=== PATIENT | female | born 1990 | race African-American/Black ===

== ENCOUNTER 2016-12-14 14:47 | Outpatient (CLI) | payer MEDICAID ==
[2016-12-14 15:55] LABS: APPEARANCE,URINE SLIGHTLY-CLOUDY; BILIRUBIN,URINE NEGATIVE (NEGATIVE); GLUCOSE, URINE NEGATIVE (NEGATIVE); KETONES,URINE NEGATIVE (NEGATIVE); LEUKOCYTE ESTERASE,URINE TRACE (NEGATIVE); NITRITE,URINE NEGATIVE (NEGATIVE); PROTEIN,URINE NEGATIVE (NEGATIVE); UROBILINOGEN,URINE NEGATIVE mg/dL (<2.0)
[2016-12-14 16:10] LABS: URINE BARBITURATES SCREEN NEGATIVE; URINE METHADONE SCREEN NEGATIVE; URINE OPIATES LOW NEGATIVE; URINE PHENCYCLIDINE SCREEN NEGATIVE
--- NOTE | 2016-12-14 16:11 | Non Stress Test Report ---
Non Stress Test Datetime Report Generated by CPN: 12/14/2016 16:11 DEMOGRAPHIC EGA NST: 37.6 INDICATION Indication for Study: Ordered by Provider MONITORING Monitor Explained: Monitor Explained; Test Explained; Patient Verbalized Understanding Time on Monitor: 12/14/2016 15:05 Time off Monitor: 12/14/2016 15:58 NST Duration: 53 NST INTERVENTIONS NST Interventions: None Physician Notified NST: J. Hansen, CNM BABY A: [id number] BABY A Movement : Present Contraction Frequency : x1 FHR Baseline : 135 Accelerations : 15X15 Decelerations : None Variability : Moderate 6-25bpm NST Review: Meets Criteria for Reactive NST NST Review and Verified By : Ney Ambrosio RN NST Results: Reactive NST REPORT Report Trigger: Send Report
== END 2016-12-14 16:05 | disposition home or self-care (01) ==
LOC: LC 14:47
PROVIDERS: ATTEND Obstetrics & Gynecology
PROC: 4A1HXCZ Monitoring of Products of Conception, Cardiac Rate, External Approach (ICD-10-PCS; principal; 2016-12-14)
DX: O47.1 False labor at or after 37 completed weeks of gestation (principal); Z3A.38 38 weeks gestation of pregnancy
CPT/HCPCS: 59025; 80307; 81005

== ENCOUNTER 2017-02-02 18:40 | Emergency (ER) | payer BC, MEDICAID ==
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
[2017-02-03 09:22] LABS: ABSOLUTE EOSINOPHILS # (AUTO) 0.2 10^3/uL (0.0-0.6); ABSOLUTE LYMPHOCYTES (AUTO) 3.2 10^3/uL (0.5-4.7); ABSOLUTE MONOCYTES (AUTO) 0.4 10^3/uL (0.1-1.4); ABSOLUTE NEUT (AUTO) 3.2 10^3/uL (1.7-8.2); BASOPHILS % (AUTO) 0.5 % (0-2); EOSINOPHILS % (AUTO) 2.5 % (0-6); HEMATOCRIT 39.5 % (36.0-47.0); HEMOGLOBIN 12.6 g/dL (12.0-15.5); HGB HCT DIFFERENCE -1.7; LYMPHOCYTES % (AUTO) 45.6 % (13-45); MEAN CORPUSCULAR HEMOGLOBIN 29.1 pg (27.0-33.4); MEAN CORPUSCULAR HGB CONC 31.8 g/dL (32.0-36.0); MEAN CORPUSCULAR VOLUME 92 fl (80-97); MONOCYTES % (AUTO) 5.8 % (3-13); RED BLOOD COUNT 4.32 10^6/uL (3.72-5.28); SEGMENTED NEUTROPHILS % (AUTO) 45.6 % (42-78)
== END 2017-02-03 00:10 | disposition home or self-care (01) ==
LOC: ER 18:40
DX: N93.8 Other specified abnormal uterine and vaginal bleeding (principal)
CPT/HCPCS: 36415; 85025; 99284

== ENCOUNTER 2017-11-09 04:47 | Emergency (ER) | payer BC, MEDICAID ==
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
--- NOTE | 2017-11-09 07:38 | RADIOLOGY REPORT (SQ) ---
EXAM DESCRIPTION: CT HEAD WITHOUT CLINICAL HISTORY: EtOH intoxication complaint of headache confusion COMPARISON: None available TECHNIQUE: Axial CT of the head obtained from the skull apex to the skull base without contrast. FINDINGS: No acute intracranial hemorrhage identified. No mass, mass effect, shift of the midline, abnormal extra-axial fluid collection or CT evidence of acute ischemic change identified. The ventricular system is unremarkable. No acute abnormalities of the supratentorial white matter, basal ganglia, cerebellum, or brainstem. The visualized paranasal sinuses and the mastoids are clear. No skull fracture identified. Visualized orbits and globes are unremarkable. Left nose piercing identified. DLP:1162.97 mGy-cm IMPRESSION: 1. No acute intracranial abnormality. This exam was performed according to our departmental dose-optimization program, which includes automated exposure control, adjustment of the mA and/or kV according to patient size and/or use of iterative reconstruction technique.
--- NOTE | 2017-11-09 07:56 | RADIOLOGY REPORT (SQ) ---
EXAM DESCRIPTION: KNEE RIGHT 1 VIEWS CLINICAL HISTORY: PAIN IN RT KNEE, UNSURE HOW INJURED, NO BRUISING COMPARISON: None. FINDINGS: Single view of the knee. No acute fracture identified on this single frontal view. Normal osseous mineralization. IMPRESSION: No acute fracture noted on single frontal view of the knee.
[2017-11-09] MEDS ORDERED: ACETAMINOPHEN 325 MG TABLET PO ONE (08:00)
== END 2017-11-09 14:23 | disposition home or self-care (01) ==
LOC: ER 04:47
DX: F10.120 Alcohol abuse with intoxication, uncomplicated (principal); Y90.7 Blood alcohol level of 200-239 mg/100 ml; S00.531A Contusion of lip, initial encounter; S80.811A Abrasion, right lower leg, initial encounter; X58.XXXA Exposure to other specified factors, initial encounter; R51 Headache; M25.561 Pain in right knee; R41.3 Other amnesia; F17.210 Nicotine dependence, cigarettes, uncomplicated; Z71.6 Tobacco abuse counseling
CPT/HCPCS: 36415; 70450; 80307; 84703; 99285; 99406

== ENCOUNTER 2017-12-17 18:48 | Emergency (ER) | payer BC, MEDICAID ==
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
--- NOTE | 2017-12-17 19:37 | RADIOLOGY REPORT (SQ) ---
EXAM DESCRIPTION: FINGER RIGHT COMPLETED DATE/TIME: 12/17/2017 7:29 pm REASON FOR STUDY: injury 2.5 weeks ago COMPARISON: None. NUMBER OF VIEWS: Three views. TECHNIQUE: AP, lateral, and oblique images acquired of the right fifth finger. LIMITATIONS: None. FINDINGS: MINERALIZATION: Normal. BONES: No acute fracture or dislocation. No worrisome bone lesions. SOFT TISSUES: No soft tissue swelling. No foreign body. OTHER: No other significant finding. IMPRESSION: NO RADIOGRAPHIC EVIDENCE OF ACUTE INJURY. COMMENT: SITE OF TRAUMA/COMPLAINT MARKED/STAMP COMPLETED: Yes TECHNICAL DOCUMENTATION: JOB ID: [id number] [employer]- All Rights Reserved Reading location - IP/workstation name: [email or web address]
[2017-12-17] MEDS ORDERED: PENICILLIN V POTASSIUM 500 MG TABLET PO ONE (20:07)
[2017-12-17] MEDS ORDERED: IBUPROFEN 800 MG TABLET PO ONE (20:07)
[2017-12-17] MEDS ORDERED: ACETAMINOPHEN 325 MG TABLET PO ONE (20:18)
[2017-12-17 20:33] VITALS: BP 134/79
== END 2017-12-17 20:33 | disposition home or self-care (01) ==
LOC: ER 18:48
DX: S69.91XA Unspecified injury of right wrist, hand and finger(s), initial encounter (principal); Y04.0XXA Assault by unarmed brawl or fight, initial encounter; J02.0 Streptococcal pharyngitis
CPT/HCPCS: 87880; 99283

== ENCOUNTER 2019-08-15 16:15 | Emergency (ER) | payer BC, MEDICAID ==
[2019-08-15 16:19] VITALS: BP 124/69
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
[2019-08-15 17:05] LABS: APPEARANCE,URINE CLOUDY; BILIRUBIN,URINE NEGATIVE (NEGATIVE); GLUCOSE, URINE NEGATIVE (NEGATIVE); KETONES,URINE NEGATIVE (NEGATIVE); LEUKOCYTE ESTERASE,URINE MODERATE (NEGATIVE); NITRITE,URINE NEGATIVE (NEGATIVE); PROTEIN,URINE 30 mg/dL (NEGATIVE); URINE SPECIFIC GRAVITY 1.028
[2019-08-15 17:06] LABS: COLOR,URINE YELLOW
--- NOTE | 2019-08-15 17:46 | RADIOLOGY REPORT (SQ) ---
EXAM DESCRIPTION: U/S OB TRANSVAGINAL W/O DOP COMPLETED DATE/TIME: 08/15/2019 5:15 pm REASON FOR STUDY: pelvic cramping,spotting COMPARISON: None. TECHNIQUE: Transvaginal static and realtime grayscale images acquired of the pelvis. Additional mckinley cted spectral and color Doppler images recorded. All images stored on PACs. CLINICAL DATES: Last menses 07/06/2019 LIMITATIONS: None. FINDINGS: UTERUS: No visualized intrauterine .Uterus is 6 x 5 x 3 cm in size. Endometrial stripe 3 mm in thickness. Punctate calcifications in the endometrium are present of doubtful clinica l significance. Cervix is closed, 2 cm in length. Small nabothian cysts in the cervix are present. RIGHT ADNEXA: Right ovary is 6 x 6 x 3.5 cm in size, with a 5.4 cm simple cyst. Normal ovary color f low No adnexal free fluid. No adnexal masses. LEFT ADNEXA: Normal ovary with normal vascular flow. Left ovary 2.4 x 2 x 1.6 cm in size No adnexal free fluid. No adnexal masses. FREE FLUID: None. OTHER: No other significant finding. IMPRESSION: NO VISUALIZED INTRA- OR EXTRAUTERINE . ECTOPIC CANNOT ENTIRELY BE EXCLUDED. FOLLOW-UP ULTRASOUND AND SERIAL BHCG LEVELS STRONGLY RECOMMENDED TO ACCURATELY ASSESS STATU S. TECHNICAL DOCUMENTATION: JOB ID: [id number] [employer]- All Rights Reserved Reading location - IP/workstation name: [email or web address]
[2019-08-15 18:25] LABS: ABSOLUTE EOSINOPHILS # (AUTO) 0.3 10^3/uL (0.0-0.6); ABSOLUTE LYMPHOCYTES (AUTO) 2.7 10^3/uL (0.5-4.7); ABSOLUTE MONOCYTES (AUTO) 0.6 10^3/uL (0.1-1.4); ABSOLUTE NEUT (AUTO) 5.8 10^3/uL (1.7-8.2); BASOPHILS % (AUTO) 0.3 % (0-2); EOSINOPHILS % (AUTO) 2.9 % (0-6); HEMOGLOBIN 14.2 g/dL (12.0-15.5); LYMPHOCYTES % (AUTO) 28.9 % (13-45); MEAN CORPUSCULAR HGB CONC 33.8 g/dL (32.0-36.0); MEAN CORPUSCULAR VOLUME 92 fl (80-97); MONOCYTES % (AUTO) 6.5 % (3-13); PLATELET COUNT 304 10^3/uL (150-450); RED BLOOD COUNT 4.58 10^6/uL (3.72-5.28); RED CELL DISTRIBUTION WIDTH 13.4 % (11.5-14.0); SEGMENTED NEUTROPHILS % (AUTO) 61.4 % (42-78); TOTAL CELLS COUNTED % (AUTO) 100 %; WHITE BLOOD COUNT 9.5 10^3/uL (4.0-10.5)
--- NOTE | 2019-08-15 18:31 | ER Document Report ---
ED General - General Chief Complaint: Vag Bleeding, +preg <12wks Stated Complaint: VAGINAL BLEEDING Time Seen by Provider: 08/15/19 16:22 Primary Care Provider: AGUSTIN ESCOBEDO MD [Primary Care Provider] - Follow up as needed TRAVEL OUTSIDE OF THE [place] IN LAST 30 DAYS: No - HPI Notes: Patient is a female who presents to the emergency department for evaluation. She states her last menstrual period was July 06. She states she has had vaginal bleeding and spotting over the last several days. She states is primarily just when she "wipes after urinating." She has had some intermittent cramping. She states she solidly believes this is just implantation bleeding. She did not have any significant blood clots. She states she really is only here "for another positive test." She denies any other vaginal discharge. She states she has plans to follow-up with women's health next week. - Related Data Allergies/Adverse Reactions: No Known Allergies Allergy (Verified 12/17/17 18:55) Home Medications: none Past Medical History - General Information source: Patient - Social History Smoking Status: Current Every Day Smoker Chew tobacco use (# tins/day): No Frequency of alcohol use: None Drug Abuse: None Family History: Reviewed & Not Pertinent Patient has suicidal ideation: No Patient has homicidal ideation: No Renal/ Medical History: Denies: Hx Peritoneal Dialysis Musculoskeletal Medical History: Reports Hx Musculoskeletal Trauma - Sprained ankle Traumatic Medical History: Reports: Hx Pneumothorax Past Surgical History: Reports: Hx Section - Immunizations Immunizations up to date: Yes Hx Diphtheria, Pertussis, Tetanus Vaccination: Yes Review of Systems - Review of Systems Constitutional: No symptoms reported EENT: No symptoms reported Cardiovascular: No symptoms reported Respiratory: No symptoms reported Gastrointestinal: No symptoms reported Genitourinary: No symptoms reported Female Genitourinary: See HPI Musculoskeletal: No symptoms reported Skin: No symptoms reported Neurological/Psychological: No symptoms reported Physical Exam - Vital signs Vitals: Temp Pulse Resp BP Pulse Ox 97.9 F 108 H 18 124/69 99 08/15/19 16:16 08/15/19 16:16 08/15/19 16:16 08/15/19 16:16 08/15/19 16:16 - Notes Notes: Vital signs reviewed, please refer to chart. Head is normocephalic, atraumatic. Neck is supple without meningismus. Heart is regular rate and rhythm. Lungs are clear to auscultation bilaterally. Abdomen is soft, nontender, normoactive bowel sounds throughout. Extremities without cyanosis, clubbing. Posterior calves are nontender. Peripheral pulses are equal. Skin is warm and dry. Course - Re-evaluation Re-evalutation: 08/15/19 18:33 Patient presents to the emergency department for evaluation. She had ultrasound performed which showed no signs of intra-or extrauterine . Laboratory investigations were obtained. Her CBC is largely unremarkable. Urinalysis showed large blood and white blood cell, this was sent for culture. Quantitative beta is still pending. The patient states she is not worried about the loss of this , does not want to stay. I talked to her at length about the possibility of ectopic . I talked to her about the fact josh as of yet I do not know her blood type.t she does not know her Rh status either. The patient states she still wants to leave, feels confident that her is fine, but acknowledges that I explained to her that there are multiple possible reasons for her bleeding, including but not limited to ectopic or early miscarriage. She voiced understanding and still wishes to leave. I tried to get her to stay to wait and find out her quantitative beta- hCG as well as blood type, but again the patient refuses. I will have her sign out AGAINST MEDICAL ADVICE. She is to follow-up with OB next week, return to the ED with worsening. 08/15/19 18:44 Prior to putting her discharge papers, it was noted that her blood work was back. In fact she is not per hour blood work. Patient will be notified and no longer is leaving AGAINST MEDICAL ADVICE. She is advised still to follow-up with OB. 08/15/19 18:52 Further review of this patient's laboratory investigations revealed she was in fact positive for gonorrhea. She was treated for both gonorrhea and chlamydia with Rocephin and Zithromax. Patient was notified of this, as well as the need to abstain from any sexual activity until her partner is seen and treated as well. She voiced understanding. - Vital Signs Vital signs: Temp Pulse Resp BP Pulse Ox 97.9 F 108 H 18 124/69 99 08/15/19 16:16 08/15/19 16:16 08/15/19 16:16 08/15/19 16:16 08/15/19 16:16 - Laboratory Result Diagrams: 08/15/19 17:47 Laboratory results interpreted by me: 08/15/19 08/15/19 16:40 16:40 Urine Protein 30 H Urine Blood LARGE H Urine Urobilinogen 2.0 H Ur Leukocyte Esterase MODERATE H N.gonorrhoeae DNA (PCR) DETECTED H - Diagnostic Test Radiology reviewed: Reports reviewed Radiology results interpreted by me: 08/15/19 18:35 Obstetrics Ultrasound 08/15/19 16:28 IMPRESSION: NO VISUALIZED INTRA- OR EXTRAUTERINE . ECTOPIC CANNOT ENTIRELY BE EXCLUDED. FOLLOW-UP ULTRASOUND AND SERIAL BHCG LEVELS STRONGLY RECOMMENDED TO ACCURATELY ASSESS STATUS. Discharge - Discharge Clinical Impression: Abnormal vaginal bleeding, Gonorrhea Condition: Stable Disposition: HOME, SELF-CARE Instructions: Vaginal Bleeding ([facility]), Gonorrhea ([facility]) Additional Instructions: Your blood test was negative here today. Your test for gonorrhea was positive, so you were treated for both gonorrhea and chlamydia. Please follow- up with OB next week. Return to the ED with worsening. Referrals: AGUSTIN ESCOBEDO MD [Primary Care Provider] - Follow up as needed
[2019-08-15 18:40] LABS: CHLAM PCR NOT DETECTED (NOT DETECT)
[2019-08-15] MEDS ORDERED: AZITHROMYCIN 250 MG TABLET PO ONE (18:51)
[2019-08-15] MEDS ORDERED: LIDOCAINE 1% INJ-PF (10 MG/ML) 30 ML SDV INJ ONE (18:51)
[2019-08-15] MEDS ORDERED: CEFTRIAXONE INJ 250 MG VIAL IM ONE (18:51)
== END 2019-08-15 19:11 | disposition home or self-care (01) ==
LOC: ER 16:15
DX: N93.9 Abnormal uterine and vaginal bleeding, unspecified (principal); A54.9 Gonococcal infection, unspecified; R10.2 Pelvic and perineal pain; F17.200 Nicotine dependence, unspecified, uncomplicated
CPT/HCPCS: 99284; 96372; 86900; 86901; 36415; 87086; 84702; 85025; 81001; 87491; 87591; 76817; Q0144; J3490; J0696